=== PATIENT | female | born 1995 | race Caucasian/White ===

== ENCOUNTER 2018-02-13 10:43 | Inpatient (IN) | payer MEDICAID ==
[~2018-02-13] VITALS: Ht 170.2 cm; Wt 77.1 kg
--- NOTE | ~2018-02-13 | DS ---
PATIENT:OCHOA DAVID :89 MEDICAL RECORD: [id number] DISCHARGE SUMMARY ADMISSION DATE: 02/13/18 DISCHARGE DATE: 02/15/18 ADMISSION DATE: 02/13/2018 DISCHARGE DATE: 02/15/2018 ADMISSION DIAGNOSIS: at term. DISCHARGE DIAGNOSIS: Mother delivered at term. PROCEDURE: Induction of labor with vaginal delivery. ATTENDING: Neville Fernando MD HISTORY OF PRESENT ILLNESS: See the H&P in the chart. SUMMARY OF HOSPITALIZATION: The patient was admitted to the hospital and underwent induction of labor without incident. The patient did have hemorrhage that was treated with Methergine. At the time of discharge, her vital signs are stable. She is afebrile. She will be discharged home. She reports [id number] lochia. Physical examination shows the uterus that is firm coursing below the level of the umbilicus. She will be discharged home with ibuprofen for pain management and recommendation for daily iron-supplementation. She will follow up in 4 to 6 weeks at [facility]. TRANSINT:[id number] Voice Confirmation ID: [id number] DOCUMENT ID: [id number] NEVILLE FERNANDO MD at 0431 CC: [id number] DICTATION DATE: 02/15/18926 DATA PROCESSING CLERK: 02/15/18 1842 DIS IN 02/15/18 [id number] [place] [address]
--- NOTE | ~2018-02-13 | OP ---
PATIENT NAME: OCHOA DAVID MEDICAL RECORD: [id number] :89 LOCATION:[id number] ADMISSION DATE:02/13/18 SURGEON: NEVILLE FERNANDO MD DATE OF OPERATION: 02/14/2018 PREDELIVERY DIAGNOSIS: at 39 weeks' gestation. POSTDELIVERY DIAGNOSES: Mother delivered at term, hemorrhage. PROCEDURE: Induction of labor with vaginal delivery. ATTENDING PHYSICIAN: Neville Fernando MD ANESTHETIC: Continuous lumbar epidural. ANESTHESIOLOGIST: Dr. Nick FINDINGS: Viable male infant, vertex presentation, Apgars 9 and 9, weight 7 pounds 1.2 ounces. Uterine atony with hemorrhage. Pitocin and Methergine given. First-degree bilateral vaginal lacerations underneath the clitoral ross repaired with 4-0 chromic. Placenta spontaneous and intact. ESTIMATED BLOOD LOSS: 600 cc. DISPOSITION: Mother and infant recovered in the room. Mother will be maintained with 2 IVs for 3-6 hours . TRANSINT:[id number] Voice Confirmation ID: [id number] DOCUMENT ID: [id number] NEVILLE FERNANDO MD at 1431 CC: [id number] DICTATION DATE: 02/14/18 1300 PIPELINE CONSTRUCTION INSPECTOR: 02/14/18 1352 ADM IN [id number] [place] [address]
[2018-02-13] MEDS ORDERED: TUMS X-STR300 MG PO (21:26)
[2018-02-13] MEDS ORDERED: PRENATAL COMPLE1 TAB PO (21:26)
[2018-02-13 21:33] LABS: HEMOGLOBIN 9.8 g/dL (12-16); MCH 30.5 pg (26.0-34.0); MCHC 33.8 g/dL (31.0-37.0); MCV 90.3 fL (80.0-100.0); MEAN PLATELET VOLUME 10.5 fL (7.4-10.4); RBC 3.21 10x6/uL (4.00-5.40); RDW 12.8 % (11.5-14.5); WBC 5.8 10x3/uL (4.8-10.8)
[2018-02-13 22:09] VITALS: BP 112/61; BMI 26.7
[2018-02-13 22:48] LABS: APPEARANCE CLEAR (CLEAR); BILIRUBIN NEGATIVE (NEGATIVE); COLOR YELLOW (YELLOW); GLUCOSE NEGATIVE (NEGATIVE); KETONE NEGATIVE (NEGATIVE); NITRITE NEGATIVE (NEGATIVE); PROTEIN NEGATIVE (NEGATIVE); UROBILINOGEN NORMAL (NORMAL)
[2018-02-13 22:49] LABS: BACTERIA MANY /hpf (NONE SEEN); EPITHELIAL CELLS OCC /hpf (0-5); RED CELLS - URINE OCC /hpf (0-5); WHITE CELLS - URINE 0-5 /hpf (0-5)
[2018-02-14 11:07] VITALS: Ht 170.2 cm; Wt 77.1 kg
[2018-02-14 16:27] LABS: UDS - AMPHET NEGATIVE QUAL (NEGATIVE); UDS - BARB NEGATIVE QUAL (NEGATIVE); UDS - BENZO NEGATIVE QUAL (NEGATIVE); UDS - COCAINE NEGATIVE QUAL (NEGATIVE); UDS - OPIATE NEGATIVE QUAL (NEGATIVE); UDS - PCP NEGATIVE QUAL (NEGATIVE); UDS - THC NEGATIVE QUAL (NEGATIVE)
[2018-02-14 19:40] VITALS: BP 124/79
[2018-02-15 06:16] LABS: RAPID PLASMA REAGIN Non Reactive (Non Reactive)
[2018-02-15 07:50] VITALS: BP 111/72
== END 2018-02-15 15:30 | disposition home or self-care (01) | DRG 774 ==
LOC: D.LD 10:43
PROVIDERS: Obstetrics & Gynecology
PROC: 10907ZC Drainage of Amniotic Fluid, Therapeutic from Products of Conception, Via Natural or Artificial Opening (ICD-10-PCS; principal; 2018-02-14)
PROC: 10E0XZZ Delivery of Products of Conception, External Approach (ICD-10-PCS; 2018-02-14)
PROC: 3E033VJ Introduction of Other Hormone into Peripheral Vein, Percutaneous Approach (ICD-10-PCS; 2018-02-14)
PROC: 0HQ9XZZ Repair Perineum Skin, External Approach (ICD-10-PCS; 2018-02-14)
DX: O69.1XX0 Labor and delivery complicated by cord around neck, with compression, not applicable or unspecified (principal); O72.1 Other immediate postpartum hemorrhage; O71.4 Obstetric high vaginal laceration alone; Z3A.39 39 weeks gestation of pregnancy; Z37.0 Single live birth

== ENCOUNTER 2018-07-07 10:28 | Emergency (ER) | payer MEDICAID ==
[~2018-07-07] VITALS: Ht 170.2 cm; Wt 68.2 kg
[~2018-07-07 10:28] MED LIST: PRENATAL COMPLE1 TAB PO; TUMS X-STR300 MG PO
[2018-07-07 10:31] VITALS: Ht 170.2 cm; Wt 68.2 kg
[2018-07-07 11:03] LABS: BASOPHILS 0.1 % (0-2); EOSINOPHILS 0.8 % (0-7); HEMATOCRIT 37.4 % (36.0-48.0); HEMOGLOBIN 13.2 g/dL (12-16); IMMATURE GRANULOCYTES 0.2 % (0-5); LYMPHOCYTES 9.6 % (15-50); MCH 30.3 pg (26.0-34.0); MCHC 35.3 g/dL (31.0-37.0); MCV 85.8 fL (80.0-100.0); MEAN PLATELET VOLUME 10.4 fL (7.4-10.4); MONOCYTES 3.1 % (2-11); NEUTROPHILS 86.2 % (40-80); RBC 4.36 10x6/uL (4.00-5.40); RDW 12.9 % (11.5-14.5); WBC 9.2 10x3/uL (4.8-10.8)
[2018-07-07 11:06] LABS: ALBUMIN 4.2 g/dL (3.4-5.0); BILIRUBIN - TOTAL 0.38 mg/dL (0.2-1.3); CALCIUM 9.3 mg/dL (8.5-10.1); CARBON DIOXIDE 21.4 mmol/L (21.0-32.0); POTASSIUM - SERUM 3.4 mmol/L (3.5-5.1); PROTEIN - SERUM 8.6 g/dL (6.4-8.2)
[2018-07-07 11:07] LABS: HCG URINE NEGATIVE (NEGATIVE)
[2018-07-07 11:08] LABS: APPEARANCE CLOUDY (CLEAR); BILIRUBIN NEGATIVE (NEGATIVE); COLOR YELLOW (YELLOW); GLUCOSE NEGATIVE (NEGATIVE); KETONE SMALL mg/dL (NEGATIVE); NITRITE NEGATIVE (NEGATIVE); PROTEIN 1+ mg/dL (NEGATIVE); SPECIFIC GRAVITY 1.025 (1.005-1.020); UROBILINOGEN NORMAL (NORMAL)
[2018-07-07 11:08] LABS: PLATELET COUNT 213 10x3/uL (130-400)
[2018-07-07 11:15] LABS: BACTERIA MODERATE /hpf (NONE SEEN); EPITHELIAL CELLS 0-5 /hpf (0-5); MUCUS >1+ /lpf (NONE SEEN); RED CELLS - URINE RARE /hpf (0-5); WHITE CELLS - URINE 0-5 /hpf (0-5)
[2018-07-07 11:16] LABS: CALCIUM OXALATE CRYSTALS 0-5 /hpf (NONE SEEN)
[2018-07-07] MEDS ORDERED: ZOFRAN ODT4 MG/UDTAB PO (14:26)
[2018-07-07] MEDS ORDERED: MACROBID100 MG PO (14:26)
[2018-07-07 14:38] VITALS: BP 111/60
== END 2018-07-07 14:41 | disposition home or self-care (01) ==
LOC: D.ER 10:28
PROVIDERS: Emergency Medicine
DX: A08.4 Viral intestinal infection, unspecified (principal); N39.0 Urinary tract infection, site not specified

== ENCOUNTER 2019-04-08 16:32 | Emergency (ER) | payer MEDICAID ==
[~2019-04-08] VITALS: Ht 170.2 cm; Wt 65.9 kg
[~2019-04-08 16:32] MED LIST changes: +MACROBID100 MG PO; +ZOFRAN ODT4 MG/UDTAB PO
[2019-04-08 16:44] VITALS: Ht 170.2 cm; Wt 65.9 kg
[2019-04-08] MEDS ORDERED: TYLENOL W/CODEI1 TAB PO (18:31)
[2019-04-08] MEDS ORDERED: PREDNISONE20 MG PO (18:31)
[2019-04-08 18:55] VITALS: BP 126/79
== END 2019-04-08 19:00 | disposition home or self-care (01) ==
LOC: D.ER 16:32
DX: S99.912A Unspecified injury of left ankle, initial encounter (principal); X58.XXXA Exposure to other specified factors, initial encounter